=== PATIENT | female | born 1985 | race Caucasian/White ===

== ENCOUNTER 2018-05-02 09:29 | Emergency (ER) | payer SELFPAY ==
[~2018-05-02] VITALS: Ht 180.3 cm; Wt 71.4 kg
[2018-05-02] MEDS ORDERED: ZITHROMAX250 MG PO (11:27)
[2018-05-02] MEDS ORDERED: MOTRIN800 MG PO (11:27)
[2018-05-02] MEDS ORDERED: TESSALON PER100 MG PO (11:27)
[2018-05-02 11:45] VITALS: BP 138/81
== END 2018-05-02 11:45 | disposition home or self-care (01) | DRG 203 ==
LOC: ED 09:29
DX: J20.9 Acute bronchitis, unspecified (principal); F31.9 Bipolar disorder, unspecified; F43.10 Post-traumatic stress disorder, unspecified; F17.210 Nicotine dependence, cigarettes, uncomplicated

== ENCOUNTER 2018-05-03 14:28 | Emergency (ER) | payer SELFPAY ==
[~2018-05-03] VITALS: Ht 180.3 cm; Wt 60.0 kg
[~2018-05-03 14:28] MED LIST: MOTRIN800 MG PO; TESSALON PER100 MG PO; ZITHROMAX250 MG PO
[2018-05-03 15:00] VITALS: BP 126/77
== END 2018-05-03 15:00 | disposition home or self-care (01) | DRG 918 ==
LOC: ED 14:28
DX: T63.431A Toxic effect of venom of caterpillars, accidental (unintentional), initial encounter (principal); L29.9 Pruritus, unspecified; F31.9 Bipolar disorder, unspecified; F43.10 Post-traumatic stress disorder, unspecified; F17.210 Nicotine dependence, cigarettes, uncomplicated

== ENCOUNTER 2018-10-27 12:40 | Emergency (ER) | payer SELFPAY ==
[~2018-10-27] VITALS: Ht 180.3 cm; Wt 68.2 kg
[2018-10-27] MEDS ORDERED: ORPHENADRINE100 MG PO (13:54)
[2018-10-27 14:00] VITALS: BP 120/85
== END 2018-10-27 14:00 | disposition home or self-care (01) | DRG 556 ==
LOC: ED 12:40
DX: M25.511 Pain in right shoulder (principal); X50.3XXA Overexertion from repetitive movements, initial encounter; Y93.E6 Activity, residential relocation; Y92.009 Unspecified place in unspecified non-institutional (private) residence as the place of occurrence of the external cause